=== PATIENT | female | born 1940 | race Caucasian/White ===

== ENCOUNTER → 2017-05-30 | Outpatient (CLI) | payer OTHER ==
[~2017-05-30] MED LIST: CALC-197 PO; ESTR0.1D3 TD; GLUC1CAP14 PO; HYDR-3533 PO; LISI-360 PO; MEDR5TAB20 PO; TAB-TAB PO
--- NOTE | 2017-06-09 09:51 | RSPPFT ---
DATE OF PROCEDURE: 05/30/17 COMMENTS: Spirometry with FVC of 1.4 predicted 2.4, FEV1 of 0.7 predicted 1.7, FEV1/FVC ratio at 52% predicted 81%. There are no significant changes post-bronchodilator acutely. Lung volumes show a mild increase in the RV/TLC ratio. DLCO is 64% of predicted but within the predicted range when corrected for alveolar volume. IMPRESSION: On the basis of the above, patient has a moderate obstructive lung defect with no acute response to bronchodilator treatment.
== END ==
LOC: PHRSP 09:05
DX: J44.9 Chronic obstructive pulmonary disease, unspecified (principal); R05 Cough; R06.2 Wheezing; I10 Essential (primary) hypertension
CPT/HCPCS: 94060; 94726; 94729